=== PATIENT | male | born 1975 | race Caucasian/White ===

== ENCOUNTER → 2016-09-16 | Outpatient (CLI) | payer OTHER | END | disposition home or self-care (01) | LOC: RAD 17:00 → EDBD 18:10 → RAD 18:10 | DX: N50.9 Disorder of male genital organs, unspecified (principal); N50.812 Left testicular pain | CPT/HCPCS: 76870 ==

== ENCOUNTER 2016-09-19 01:27 | Emergency (ER) | payer OTHER ==
[~2016-09-19] VITALS: Ht 185.4 cm; Wt 73.9 kg
[2016-09-19 02:37] LABS: EOSINOPHIL (%) 3.7 % (0-5); EOSINOPHIL COUNT 0.3 K/uL (0-0.3); HEMATOCRIT 35.5 % (38.0-50.0); IMMATURE GRANULOCYTE (%) 0.2 % (0.0-0.7); IMMATURE GRANULOCYTE COUNT 0.2 K/uL; LYMPHOCYTE COUNT 1.9 K/uL (1.0-2.8); MCH 30.3 PG (29.0-34.0); MCHC 34.4 G/DL (30.0-36.0); MCV 88.1 FL (86-99); MEAN PLAT.VOLUME 9.2 uM^3 (9.0-12.4); MONOCYTE (%) 6.9 % (3-12); MONOCYTE COUNT 0.6 K/uL (0-0.8); NEUTROPHIL (%) 67.7 % (45-76); NEUTROPHIL COUNT 6.2 K/uL (1.8-6.4); PLATELET COUNT 275 K/uL (156-360); RBC DIS.WIDTH-CV 13.1 % (11.8-14.6); RBC DIS.WIDTH-SD 41.1 % (39-53); RED BLOOD COUNT 4.03 M/uL (4.00-5.50); WHITE BLOOD COUNT 9.1 K/uL (4.1-10.2)
[2016-09-19 02:46] LABS: CHLORIDE 109 mEq/L (99-109); POTASSIUM 3.6 mEq/L (3.7-5.4); SODIUM 141 mEq/L (136-147)
[2016-09-19 02:48] LABS: GLUCOSE 104 mg/dL (70-99)
[2016-09-19 02:49] LABS: INTER. NORMALIZED RATIO 1.1; PROTHROMBIN TIME 11.1 (9.2-11.2); PTT 29.9 (25-32)
[2016-09-19 02:50] LABS: ANION GAP 7 MEQ/L (2-14); TOTAL BILIRUBIN 0.2 mg/dL (0.0-1.0)
[2016-09-19 02:52] LABS: ALKALINE PHOSPHATASE 75 IU/L (3-129); GFR ESTIMATE (CALCULATED) > 59 mL/min/
[2016-09-19 02:53] LABS: UREA NITROGEN (BUN) 14 mg/dL (9-23)
[2016-09-19 02:56] LABS: LIPASE 30 U/L (1.0-51.0)
[2016-09-19 03:38] LABS: ADD MIUA? YES; BILIRUBIN NEGATIVE; BLOOD LARGE; COLOR YELLOW ((YELLOW)); GLUCOSE (STRIP) NEGATIVE; KETONES NEGATIVE; LEUKOCYTES NEGATIVE; NITRITE NEGATIVE; PROTEIN (STRIP) 30; UROBILINOGEN 0.2 MG/DL (0.2-1.0)
[2016-09-19 03:44] LABS: BACTERIA NONE SEEN /HPF; EPITHELIAL CELLS RARE /HPF; MUCUS TRACE /LPF; RED BLOOD CELLS TNTC /HPF (0-5); UCUL ADDED? NO
[2016-09-19] MEDS ORDERED: ZOFRAN8 MG PO (03:45)
[2016-09-19] MEDS ORDERED: NORCO 5/3251 TABLET PO (03:45)
[2016-09-19] MEDS ORDERED: FLOMAX0.4 MG PO (03:45)
[2016-09-19] MEDS ORDERED: TRAMADOL HCL50 MG PO (04:02)
[2016-09-19 04:10] VITALS: BP 118/75
== END 2016-09-19 04:38 | disposition home or self-care (01) ==
LOC: EME 01:27
PROVIDERS: Emergency Medicine
DX: N13.2 Hydronephrosis with renal and ureteral calculous obstruction (principal); R31.9 Hematuria, unspecified; D64.9 Anemia, unspecified; R93.8 Abnormal findings on diagnostic imaging of other specified body structures; F17.200 Nicotine dependence, unspecified, uncomplicated
CPT/HCPCS: 74177; 80053; 81003; 83690; 85025; 85610; 85730; 99281; 99285; J1885; J7030

== ENCOUNTER 2016-10-19 22:49 | Emergency (ER) | payer OTHER ==
[~2016-10-19] VITALS: Ht 185.4 cm; Wt 72.5 kg
[~2016-10-19 22:49] MED LIST: FLOMAX0.4 MG PO; NORCO 5/3251 TABLET PO; TRAMADOL HCL50 MG PO; ZOFRAN8 MG PO
[2016-10-19 23:42] LABS: MCH 30.5 PG (29.0-34.0); MCHC 33.8 G/DL (30.0-36.0); MCV 90.1 FL (86-99); MEAN PLAT.VOLUME 9.8 uM^3 (9.0-12.4); PLATELET COUNT 193 K/uL (156-360); RBC DIS.WIDTH-CV 13.7 % (11.8-14.6); RBC DIS.WIDTH-SD 45.3 % (39-53); RED BLOOD COUNT 4.33 M/uL (4.00-5.50)
[2016-10-19 23:50] LABS: CHLORIDE 108 mEq/L (99-109); POTASSIUM 3.9 mEq/L (3.7-5.4); SODIUM 143 mEq/L (136-147)
[2016-10-19 23:53] LABS: GLUCOSE 123 mg/dL (70-99)
[2016-10-19 23:54] LABS: ANION GAP 10 MEQ/L (2-14)
[2016-10-19 23:55] LABS: TOTAL BILIRUBIN 0.3 mg/dL (0.0-1.0)
[2016-10-19 23:56] LABS: ALKALINE PHOSPHATASE 75 IU/L (3-129); GFR ESTIMATE (CALCULATED) > 59 mL/min/
[2016-10-19 23:57] LABS: UREA NITROGEN (BUN) 15 mg/dL (9-23)
[2016-10-20] LABS: LIPASE 34 U/L (1.0-51.0)
[2016-10-20 02:03] LABS: ADD MIUA? YES; BILIRUBIN NEGATIVE; BLOOD LARGE; COLOR YELLOW ((YELLOW)); GLUCOSE (STRIP) NEGATIVE; KETONES NEGATIVE; LEUKOCYTES NEGATIVE; NITRITE NEGATIVE; PROTEIN (STRIP) NEGATIVE; UROBILINOGEN 0.2 MG/DL (0.2-1.0)
[2016-10-20 02:18] LABS: SPECIFIC GRAVITY 1.093 (1.000-1.030)
[2016-10-20 02:27] LABS: BACTERIA NONE SEEN /HPF; EPITHELIAL CELLS RARE /HPF; MUCUS TRACE /LPF; RED BLOOD CELLS TNTC /HPF (0-5); UCUL ADDED? NO
[2016-10-20] MEDS ORDERED: ZOFRAN4 MG PO (02:32)
[2016-10-20] MEDS ORDERED: TORADOL10 MG PO (02:32)
[2016-10-20] MEDS ORDERED: PERCOCET 5/31 TABLET PO (02:32)
[2016-10-20 03:18] VITALS: BP 94/61
== END 2016-10-20 03:20 | disposition home or self-care (01) ==
LOC: EME 22:49
PROVIDERS: Emergency Medicine
DX: N20.1 Calculus of ureter (principal); N50.812 Left testicular pain; N50.9 Disorder of male genital organs, unspecified; E86.0 Dehydration; R31.9 Hematuria, unspecified
CPT/HCPCS: 74177; 76870; 80053; 81003; 83605; 83690; 85027; 86850; 86900; 86901; 93005; 93975; 99281; 99285; J1885; J2270; J2405; J7030